=== PATIENT | female | born 1980 | race Caucasian/White ===

== ENCOUNTER 2018-03-28 03:15 | Emergency (ER) | payer OTHER ==
[~2018-03-28] VITALS: Ht 160 cm; Wt 104.3 kg
[2018-03-28 03:19] VITALS: BP 140/77
--- NOTE | 2018-03-28 03:30 | NUR ---
PT TAKEN TO BED 2
--- NOTE | 2018-03-28 03:33 | NUR ---
37 YO F PATIENT PRESENTS TO ED WITH WITH LEFT ARM PAIN X 3-4 DAYS . PT STATES THAT SHE SLEPT ON HER ARM "WRONG" A FEW NIGHTS AGO AND THE SHOULDER WAS SORE WHEN SHE WOKE, PT STATES THAT THE PAIN GOT PROGRESSIVELY WORSE.PAIN WITH MOVEMENT AT THE SHOULDER. ABLE TO MOVE AT ELBOW, WRIST AND DIGITS. SENSATION AND CIRCULATION IN FINGERS. DENIES N/V/D; SKIN IS PINK/WARM/DRY; AAOX4 NO FACIAL DROPING , SYMMETRICAL SMILE NOTED. EVEN AND STEADY GAIT; LUNGS CLEAR BL; HR EVEN AND REGULAR; PT DENIES ANY FEVER, CP, SOB, OR COUGH AT THIS TIME; PATIENT STATES PAIN OF 10/10 AT THIS TIME; VSS; PATIENT POSITIONED FOR COMFORT; HOB ELEVATED; BEDRAILS UP X2; BED DOWN. ER MD MADE AWARE OF PT STATUS.
[2018-03-28] MEDS ORDERED: KETOROLAC 30 MG/ML VIAL IM ONE (03:45)
[2018-03-28] MEDS ORDERED: HYDROcodone/APAP 5/325 MG 1 TAB TAB PO ONE (03:45)
--- NOTE | 2018-03-28 04:10 | NUR ---
X-Ray at bedside.
[2018-03-28 04:39] VITALS: BP 138/78
--- NOTE | 2018-03-28 04:39 | NUR ---
Patient discharged with v/s stable. Written and verbal after care instructions given and explained. Patient alert, oriented and verbalized understanding of instructions. Ambulatory with steady gait. All questions addressed prior to discharge. ID band removed. Patient advised to follow up with PMD. Rx of IBUPROFEN 600MG, NORCO 5MG-325MG TAB given. Patient educated on indication of medication including possible reaction and side effects. Opportunity to ask questions provided and answered.
== END 2018-03-28 04:39 | disposition home or self-care (01) ==
LOC: MED 03:15
DX: M19.012 Primary osteoarthritis, left shoulder (principal); Z88.8 Allergy status to other drugs, medicaments and biological substances
CPT/HCPCS: 73030; 96372; 99284; J1885; Q0092

== ENCOUNTER 2018-09-16 23:52 | Emergency (ER) | payer OTHER ==
[~2018-09-16] VITALS: Ht 160 cm; Wt 111.1 kg
[2018-09-17 00:05] VITALS: BP 152/94
[2018-09-17 00:58] VITALS: BP 130/71
== END 2018-09-17 00:55 | disposition home or self-care (01) ==
LOC: MED 23:52
DX: N93.8 Other specified abnormal uterine and vaginal bleeding (principal); Z88.8 Allergy status to other drugs, medicaments and biological substances
CPT/HCPCS: 81002; 81025; 99283

== ENCOUNTER 2019-10-03 20:16 | Emergency (ER) | payer OTHER ==
[~2019-10-03] VITALS: Ht 160 cm; Wt 108.9 kg
[2019-10-03 20:30] VITALS: BP 99/66
--- NOTE | 2019-10-03 20:33 | NUR ---
TO LOBBY A/W BED VIA WHEECHAIR
--- NOTE | 2019-10-03 21:45 | NUR ---
PT TO BED 4 VIA WHEELCHAIR AND ASSISTED TO BED BY FAMILY MEMBER
--- NOTE | 2019-10-03 21:53 | NUR ---
PT C/O NAUSEA, VOMITING, DIARRHEA X6 HRS. PT STATES PAIN STARTED AFTER EATING LUNCH TODAY. C/O HEADACHE. PER PT "I CANT KEEP ANYTHING DOWN". ABD SOFT, ROUND, NONTENDER. BOWEL SOUNDS PRESENT X4 QUAD. RR EVEN AND UNLABORED. PT POSITIONED IN BED FOR COMFORT. VSS. MEDHX: DENIES ALLERGIES: MEPERIDINE
[2019-10-03] MEDS ORDERED: NACL 0.9% 1,000 ML IV ONE (22:10)
[2019-10-03] MEDS ORDERED: ONDANSETRON 4 MG/2 ML VIAL IVP ONE (22:10)
[2019-10-03] MEDS ORDERED: KETOROLAC 30 MG/ML VIAL IVP ONE (22:10)
--- NOTE | 2019-10-03 22:51 | NUR ---
PT RESTING IN BED IN COMFORTABLE POSITION WITH EYES CLOSED, VSS. BED LOCKED AND IN LOW POSITION. VSS. WILL CONTINUE TO MONITOR.
--- NOTE | 2019-10-03 23:18 | NUR ---
PT STATES RELIEF OF ABD CRAMPING AT THIS TIME. VSS. WILL CONTINUE TO MONITOR.
--- NOTE | 2019-10-04 00:34 | NUR ---
Patient discharged with v/s stable. Written and verbal after care instructions given and explained. Patient alert, oriented and verbalized understanding of instructions. Ambulatory with steady gait. All questions addressed prior to discharge. ID band removed. Patient advised to follow up with PMD. Rx of ZOFRAN given. Patient educated on indication of medication including possible reaction and side effects. Opportunity to ask questions provided and answered. DISCHARGED BY DR KERN
== END 2019-10-04 00:34 | disposition home or self-care (01) ==
LOC: MED 20:16
DX: A08.4 Viral intestinal infection, unspecified (principal); R11.10 Vomiting, unspecified; Z90.710 Acquired absence of both cervix and uterus; Z88.5 Allergy status to narcotic agent
CPT/HCPCS: 96361; 96374; 96375; 99283; J1885; J2405; J7030

== ENCOUNTER 2020-02-18 16:56 | Emergency (ER) | payer OTHER ==
[~2020-02-18] VITALS: Ht 160 cm; Wt 122.5 kg
--- NOTE | 2020-02-18 17:08 | NUR ---
Patient ambulated to bed 8. RN evaluating patient at bedside.
[2020-02-18 17:14] VITALS: BP 114/72
--- NOTE | 2020-02-18 17:30 | NUR ---
Female Newspaper Press Operator Apprentice, TRANG BETANCOURT, accompanied female patient for Pelvic Exam WITH UMBERTO FISHER. VAGINAL SWABS COLLECTED
[2020-02-18 17:54] LABS: APPEARANCE,URINE SL CLOUDY (CLEAR); BILIRUBIN,URINE NEGATIVE (NEGATIVE); BLOOD, URINE TRACE-I (NEGATIVE); COLOR,URINE YELLOW (YELLOW); LEUKOCYTE ESTERASE ,URINE TRACE (NEGATIVE); NITRITE, URINE NEGATIVE (NEGATIVE); UGLUCOSE NEGATIVE (NEGATIVE)
--- NOTE | 2020-02-18 18:11 | NUR ---
pt c/o Vaginal pain x1 week with dysuria. Per pt she took a OTC UTI medication with no improvement. Per pt she is sexcually active and has new boyfriend x1 month who is asymptomatic. Pt denies vaginal bleeding or vaginal discharge. Per pt pain level 6/10, "feels like rugburn." pt alert and awake, vs stable. ambulatory. Med hx: hysterectomy
[2020-02-18 18:29] LABS: RBC,URINE 0-5 /HPF (0-5)
[2020-02-18 18:52] VITALS: BP 146/96
--- NOTE | 2020-02-18 18:52 | NUR ---
Patient discharged with v/s stable. Written and verbal after care instructions given and explained. Patient alert, oriented and verbalized understanding of instructions. Ambulatory with steady gait. All questions addressed prior to discharge. ID band removed. Patient advised to follow up with PMD. Rx of Acyclovir 400mg and Macrobid Capsule 100mg was given. Patient educated on indication of medication including possible reaction and side effects. Opportunity to ask questions provided and answered.
[2020-02-21 06:07] LABS: CHLAMYDIA TRACHOMATIS AMP DNA Negative (Negative)
== END 2020-02-18 18:52 | disposition home or self-care (01) ==
LOC: MED 16:56
DX: A60.00 Herpesviral infection of urogenital system, unspecified (principal); N39.0 Urinary tract infection, site not specified; Z88.8 Allergy status to other drugs, medicaments and biological substances; Z90.710 Acquired absence of both cervix and uterus
CPT/HCPCS: 36415; 81001; 81025; 87070; 87086; 87205; 87210; 87491; 99284